=== PATIENT | female | born 1980 | race Caucasian/White ===

== ENCOUNTER 2017-04-25 19:37 | Emergency (ER) | payer BC, OTHER ==
[~2017-04-25] VITALS: Ht 157.5 cm; Wt 72.4 kg
[2017-04-25] MEDS ORDERED: LORazepam 1MG TABLET PO ONE (20:30)
[2017-04-25 20:35] LABS: HEMATOCRIT 42.3 % (34.6-47.8); HEMOGLOBIN 14.8 g/dL (11.7-16.4); WHITE BLOOD COUNT 7.6 x10^3/uL (3.4-10)
[2017-04-25 20:48] LABS: BLOOD UREA NITROGEN 10 mg/dL (7-18)
[2017-04-25] MEDS ORDERED: LORazepam 1MG TABLET ONE (21:00)
[2017-04-25 21:33] VITALS: BP 128/78
== END 2017-04-25 21:39 | disposition home or self-care (01) ==
LOC: ED 21:00
DX: R00.2 Palpitations (principal); F41.1 Generalized anxiety disorder
CPT/HCPCS: 36415; 71010; 80048; 82040; 84436; 84443; 84703; 85025; 93005; 99285

== ENCOUNTER 2017-12-19 11:19 | Emergency (ER) | payer OTHER ==
[~2017-12-19] VITALS: Ht 157.5 cm; Wt 70.6 kg
[2017-12-19 11:25] VITALS: BP 141/97
[2017-12-19 12:34] LABS: MICROSCOPIC AUTO
[2017-12-19 12:36] LABS: CULTURE INDICATED? YES
== END 2017-12-19 14:24 | disposition home or self-care (01) ==
LOC: ED 13:00
DX: O23.11 Infections of bladder in pregnancy, first trimester (principal); Z3A.08 8 weeks gestation of pregnancy
CPT/HCPCS: 76801; 81001; 87086; 99285

== ENCOUNTER 2018-03-11 02:56 | Emergency (ER) | payer OTHER ==
[~2018-03-11] VITALS: Ht 157.5 cm; Wt 78.1 kg
[2018-03-11 04:39] LABS: BASOPHILS # (AUTO) 0.07 x10^3/uL (0-0.1); BASOPHILS % (AUTO) 1 % (0-1); EOSINOPHILS # (AUTO) 0.34 x10^3/uL (0-0.4); EOSINOPHILS % (AUTO) 2 % (1-7); LYMPHOCYTES # (AUTO) 2.22 x10^3/uL (1-3.4); LYMPHOCYTES % (AUTO) 15 % (22-44); MD NO; MEAN CORPUSCULAR HGB CONC 33.8 g/dL (32.4-35.8); MEAN CORPUSCULAR VOLUME 91.7 fL (80-100); MEAN PLATELET VOLUME 8.3 fL (7.4-10.4); MONOCYTES # (AUTO) 0.78 x10^3/uL (0.2-0.8); MONOCYTES % (AUTO) 5 % (2-9); NEUTROPHILS % (AUTO) 77 % (42-75); PLATELET COUNT 338 x10^3/uL (130-400); RED BLOOD COUNT 4.08 x10^6/uL (3.82-5.3); RED CELL DISTRIBUTION WIDTH 14.3 % (9.6-15.2)
[2018-03-11 04:55] LABS: ALBUMIN 2.8 g/dL (3.4-5.0); ANION GAP 10 mmol/L (5-15); CALCIUM 8.9 mg/dL (8.5-10.1); CHLORIDE 110 mmol/L (98-107); CREATININE 0.54 mg/dL (0.55-1.02)
[2018-03-11 04:58] LABS: TROPONIN I < 0.015 ng/mL (0.000-0.045)
[2018-03-11] MEDS ORDERED: MAALOX/HYOSCYAMINE/LIDOCAINE 45 ML BTL ONE (05:28)
[2018-03-11] MEDS ORDERED: MAALOX/HYOSCYAMINE/LIDOCAINE 45 ML BTL PO ONE (05:30)
[2018-03-11 05:41] LABS: MICROSCOPIC NOT IND
[2018-03-11 05:48] LABS: CULTURE INDICATED? NO
[2018-03-11 06:01] LABS: ALANINE AMINOTRANSFERASE 46 U/L (12-78); ALBUMIN 2.7 g/dL (3.4-5.0)
[2018-03-11 06:02] LABS: ALKALINE PHOSPHATASE 59 U/L (45-117); BILIRUBIN,TOTAL 0.1 mg/dL (0.2-1.0)
[2018-03-11 06:06] LABS: BILIRUBIN, DIRECT < 0.1 mg/dL (0.1-0.2)
[2018-03-11 06:17] VITALS: BP 117/78
== END 2018-03-11 06:40 | disposition home or self-care (01) ==
LOC: ED 05:50
DX: I21.9 Acute myocardial infarction, unspecified (principal); R07.89 Other chest pain; M25.511 Pain in right shoulder; F41.1 Generalized anxiety disorder
CPT/HCPCS: 36415; 71045; 80048; 80076; 81003; 82040; 84484; 85025; 93005; 99285

== ENCOUNTER 2018-05-15 02:18 | Emergency (ER) | payer OTHER ==
[~2018-05-15] VITALS: Ht 157.5 cm; Wt 84.5 kg
[2018-05-15] MEDS ORDERED: FLUCONAZOLE 100 MG TABLET ONE (02:58)
[2018-05-15] MEDS ORDERED: FLUCONAZOLE 200 MG TABLET PO ONE (03:00)
[2018-05-15 03:50] VITALS: BP 127/80
== END 2018-05-15 04:07 ==
LOC: ED 02:34
DX: O99.511 Diseases of the respiratory system complicating pregnancy, first trimester (principal); R05 Cough; Z3A.01 Less than 8 weeks gestation of pregnancy
CPT/HCPCS: 71046; 82962; 99283

== ENCOUNTER 2018-06-10 17:02 | Emergency (ER) | payer OTHER ==
[~2018-06-10] VITALS: Ht 157.5 cm; Wt 86.3 kg
--- NOTE | 2018-06-10 17:33 | NUR ---
fhts by doppler 140, states baby active
[2018-06-10] MEDS ORDERED: PREN1TAB28 PO (17:47)
[2018-06-10 18:02] LABS: BASOPHILS # (AUTO) 0.02 x10^3/uL (0-0.1); BASOPHILS % (AUTO) 0 % (0-1); EOSINOPHILS # (AUTO) 0.36 x10^3/uL (0-0.4); EOSINOPHILS % (AUTO) 3 % (1-7); LYMPHOCYTES # (AUTO) 1.55 x10^3/uL (1-3.4); LYMPHOCYTES % (AUTO) 14 % (22-44); MD NO; MEAN CORPUSCULAR HEMOGLOBIN 29.9 pg (27.0-34.8); MEAN CORPUSCULAR HGB CONC 33.5 g/dL (32.4-35.8); MEAN CORPUSCULAR VOLUME 89.1 fL (80-100); MONOCYTES # (AUTO) 0.61 x10^3/uL (0.2-0.8); MONOCYTES % (AUTO) 6 % (2-9); NEUTROPHILS # (AUTO) 8.42 x10^3/uL (1.8-6.8); NEUTROPHILS % (AUTO) 77 % (42-75); PLATELET COUNT 299 x10^3/uL (130-400); RED BLOOD COUNT 4.09 x10^6/uL (3.82-5.3); RED CELL DISTRIBUTION WIDTH 14.6 % (9.6-15.2)
[2018-06-10 18:10] LABS: ALANINE AMINOTRANSFERASE 20 U/L (12-78); ALBUMIN 2.8 g/dL (3.4-5.0); ANION GAP 12 mmol/L (5-15); CHLORIDE 109 mmol/L (98-107)
[2018-06-10 18:12] LABS: ALKALINE PHOSPHATASE 89 U/L (45-117); BILIRUBIN,TOTAL 0.4 mg/dL (0.2-1.0)
[2018-06-10 18:25] LABS: TROPONIN I < 0.015 ng/mL (0.000-0.045)
--- NOTE | 2018-06-10 18:46 | NUR ---
URINE COLLECTED AND SENT TO LAB. PT RESTING WITH NO COMPLAINTS.
[2018-06-10 18:50] LABS: MICROSCOPIC NOT IND
[2018-06-10 18:52] LABS: CULTURE INDICATED? NO
--- NOTE | 2018-06-10 19:01 | NUR ---
RECEIVED REPORT FROM JAVI PEARSON TO ASSUME PT. CARE AT THIS TIME. PT. OUT OF ROOM ON [facility]. IN ROOM. WILL AWAIT PT. RETURN.
--- NOTE | 2018-06-10 19:22 | NUR ---
LATE ENTRY: PT. BACK IN ROOM RESTING ON GURNEY. PT. CONTINUES TO C/O PAIN TO LEFT UPPER QUAD/LOWER CHEST PAIN. RESP ARE EVEN AND NON-LABORED. REPORTS COUGH HAS BEEN GOING ON X 1 MONTH. CONTINUOUS PULSE OX, B/P, AND HEART MONITORS IN PLACE. CALL LIGHT IN REACH. AT BS. DENIES NEEDS. US RESULTS PENDING.
--- NOTE | 2018-06-10 20:23 | NUR ---
PT. DID NOT WANT TO SIGN CONSENT FOR CTA SHE DOES NOT WANT TO PUT BABY AT RISK. DR. ISAAC IN ROOM X 2 TO ANSWER QUESITONS AND DISCUSS RISKS/BENEFITS WITH PT. AND . IN THE END PT. DECIDED NOT TO HAVE CT DONE TODAY. HER AND HER REPORT THEY WILL RETURN IMMEDIATELY FOR ANY NEW CONCERNS.
[2018-06-10 20:35] VITALS: BP 120/76
--- NOTE | 2018-06-10 20:48 | NUR ---
PT. ASKING ABOUT INHALER RX. DISCUSSED WITH DR. ISAAC. RX BEING PRINTED.
== END 2018-06-10 20:57 | disposition home or self-care (01) ==
LOC: ED 17:44
DX: O99.513 Diseases of the respiratory system complicating pregnancy, third trimester (principal); J20.8 Acute bronchitis due to other specified organisms; Z3A.35 35 weeks gestation of pregnancy
CPT/HCPCS: 36415; 71046; 80053; 81003; 84484; 85025; 85379; 93005; 93970; 99284

== ENCOUNTER 2018-07-06 11:29 | Outpatient (CLI) | payer OTHER ==
[~2018-07-06] VITALS: Ht 157.5 cm; Wt 88.0 kg
[~2018-07-06 11:29] MED LIST: PREN1TAB28 PO
[2018-07-06 12:14] VITALS: BP 117/75
[2018-07-06 12:15] LABS: BASOPHILS # (AUTO) 0.01 x10^3/uL (0-0.1); BASOPHILS % (AUTO) 0 % (0-1); EOSINOPHILS # (AUTO) 0.33 x10^3/uL (0-0.4); EOSINOPHILS % (AUTO) 4 % (1-7); LYMPHOCYTES # (AUTO) 1.32 x10^3/uL (1-3.4); LYMPHOCYTES % (AUTO) 14 % (22-44); MD NO; MEAN CORPUSCULAR HEMOGLOBIN 29.8 pg (27.0-34.8); MEAN CORPUSCULAR HGB CONC 33.5 g/dL (32.4-35.8); MEAN CORPUSCULAR VOLUME 88.8 fL (80-100); MONOCYTES # (AUTO) 0.71 x10^3/uL (0.2-0.8); MONOCYTES % (AUTO) 8 % (2-9); NEUTROPHILS # (AUTO) 7.07 x10^3/uL (1.8-6.8); NEUTROPHILS % (AUTO) 75 % (42-75); PLATELET COUNT 287 x10^3/uL (130-400); RED BLOOD COUNT 4.18 x10^6/uL (3.82-5.3)
[2018-07-06 12:25] LABS: ALBUMIN 2.7 g/dL (3.4-5.0); ANION GAP 10 mmol/L (5-15); CHLORIDE 111 mmol/L (98-107)
[2018-07-06 12:28] LABS: ALANINE AMINOTRANSFERASE 19 U/L (12-78); ALKALINE PHOSPHATASE 129 U/L (45-117); BILIRUBIN,TOTAL 0.5 mg/dL (0.2-1.0); CREATININE 0.71 mg/dL (0.55-1.02); TOTAL PROTEIN 7.1 g/dL (6.4-8.2)
[2018-07-06 12:52] LABS: MICROSCOPIC INDICATED
[2018-07-06] MEDS ORDERED: PREN1TAB60 PO (13:27)
== END 2018-07-06 13:40 | disposition home or self-care (01) ==
LOC: LDOP 11:29
PROVIDERS: ATTEND Obstetrics & Gynecology
DX: O13.3 Gestational [pregnancy-induced] hypertension without significant proteinuria, third trimester (principal); Z3A.39 39 weeks gestation of pregnancy
CPT/HCPCS: 36415; 59025; 80053; 81001; 82570; 84156; 84550; 85025; 99201; G0463

== ENCOUNTER 2019-07-20 09:43 | Emergency (ER) | payer SELFPAY ==
[~2019-07-20] VITALS: Ht 157.5 cm; Wt 60.0 kg
[~2019-07-20 09:43] MED LIST changes: +PREN1TAB60 PO
[2019-07-20 09:57] VITALS: BP 122/90
--- NOTE | 2019-07-20 10:10 | NUR ---
PT HERE WITH C/O SUBJECTIVE FEVER, COUGH, NASAL CONGESTION. PT STATES TOOK MEDS AT HOME AND IT HAS HAD NO EFFECT.
--- NOTE | 2019-07-20 11:10 | NUR ---
Patient/Caregiver given discharge instructions and they have confirmed that they understand the instructions. Patient ambulatory with steady gait.
== END 2019-07-20 11:12 | disposition home or self-care (01) ==
LOC: ED 10:08
DX: B34.9 Viral infection, unspecified (principal); I10 Essential (primary) hypertension
CPT/HCPCS: 71046; 99283